=== PATIENT | female | born 1970 | race Caucasian/White ===

== ENCOUNTER 2017-08-25 09:19 | Emergency (ER) | payer BC ==
[~2017-08-25] VITALS: Ht 157.5 cm; Wt 84.1 kg
[~2017-08-25 09:19] MED LIST: ALDACTONE25 MG PO; ENDOCET 5-3251 EACH PO; FENOFIBRATE160 M1 PO; FLUOXETINE HCL40 MG PO; IBUPROFEN800 MG PO; LEVOTHYROXINE125 MCG PO
[2017-08-25 10:23] LABS: APPEARANCE SL.HAZY ((CLEAR)); BILIRUBIN NEGATIVE; BLOOD NEGATIVE; COLOR YELLOW ((YELLOW)); GLUCOSE (STRIP) NEGATIVE; KETONES NEGATIVE; LEUKOCYTES NEGATIVE; NITRITE NEGATIVE; PROTEIN (STRIP) NEGATIVE; SPECIFIC GRAVITY 1.023 (1.000-1.030); UROBILINOGEN 0.2 MG/DL (0.2-1.0)
[2017-08-25 10:24] LABS: HEMATOCRIT 37.3 % (36.0-46.0); HEMOGLOBIN 12.3 G/DL (11.9-15.5); MCH 29.3 PG (29.0-34.0); MCV 88.8 FL (83-99); PLATELET COUNT 279 K/uL (156-360); RBC DIS.WIDTH-CV 12.6 % (11.8-14.6); RBC DIS.WIDTH-SD 41.2 % (39-53); WHITE BLOOD COUNT 6.5 K/uL (4.1-10.2)
[2017-08-25 10:27] LABS: BACTERIA RARE /HPF; EPITHELIAL CELLS 3+ /HPF; MUCUS TRACE /LPF; RED BLOOD CELLS 0-5 /HPF (0-5); UCUL ADDED? NO; WHITE BLOOD CELLS 0-5 /HPF (0-5)
[2017-08-25 10:29] LABS: ALBUMIN 4.3 g/dL (3.2-4.8)
[2017-08-25 10:30] LABS: CHLORIDE 105 mEq/L (99-109); POTASSIUM 3.7 mEq/L (3.7-5.4); SODIUM 140 mEq/L (136-147)
[2017-08-25 10:32] LABS: GLUCOSE 125 mg/dL (70-99); TOTAL PROTEIN 7.3 g/dL (6.4-8.3)
[2017-08-25 10:34] LABS: TOTAL BILIRUBIN 0.3 mg/dL (0.0-1.0)
[2017-08-25 10:35] LABS: ALKALINE PHOSPHATASE 72 IU/L (3-129)
[2017-08-25 10:36] LABS: CREATININE 0.8 mg/dL (0.6-1.3); GFR ESTIMATE (CALCULATED) > 59 mL/min/
[2017-08-25 10:37] LABS: AST (GOT) 19 IU/L (2-34); UREA NITROGEN (BUN) 10 mg/dL (9-23)
[2017-08-25 10:39] LABS: ALT (GPT) 31 IU/L (3-49)
[2017-08-25 10:45] LABS: QUANTITATIVE HCG < 4.0 MIU/ML
[2017-08-25 11:42] LABS: LIPASE 15 U/L (1.0-51.0)
[2017-08-25 12:10] VITALS: BP 137/88
== END 2017-08-25 12:17 | disposition home or self-care (01) ==
LOC: EME 09:19
DX: R10.31 Right lower quadrant pain (principal); N83.201 Unspecified ovarian cyst, right side; N83.202 Unspecified ovarian cyst, left side; E11.9 Type 2 diabetes mellitus without complications; F32.9 Major depressive disorder, single episode, unspecified; F41.9 Anxiety disorder, unspecified; Z87.891 Personal history of nicotine dependence; Z90.710 Acquired absence of both cervix and uterus
CPT/HCPCS: 74177; 80053; 81003; 83690; 84702; 85027; 99281; 99285; J7030